=== PATIENT | female | born 1975 | race Caucasian/White ===

== ENCOUNTER 2017-05-20 18:41 | Emergency (ER) | payer SELFPAY ==
[2017-05-20 18:44] VITALS: BP 198/87; PULSE 79; RESP 16; TEMP 98.2; O2SAT 98
--- NOTE | 2017-05-20 19:35 | PD ---
Physical Exam Date Seen by Provider: May 20, 2017 Time Seen by Provider: 19:33 Narrative 42 yo female here for evaluation of cough and blurry vision. Dry cough x 2 weeks with no improvement. Per patient she has abdominal pain and chest pain secondary to the cough. No sick contacts. OTC meds not working. Cough worsens at night. Has vomited. Concerned because yesterday developed blurry vision and eye pain with the cough as well. Never had this before. Has blurry vision today. Vitals are stable in triage. Awaiting Bed placement. Data Data Last Documented VS Vital Signs Date Time Temp Pulse Resp B/P Pulse Ox O2 Delivery O2 Flow Rate FiO2 05/20/17 18:44 98.2 79 16 198/87 98 MDM Medical Record Reviewed: Yes Supervised Visit with YARY: Cam Hamilton May 20, 2017 19:35
== END 2017-05-20 21:53 | disposition left against medical advice (07) ==
LOC: NED 18:41
DX: R05 Cough (principal)
CPT/HCPCS: 99281